=== PATIENT | female | born 1970 | race Caucasian/White ===

== ENCOUNTER 2018-03-12 08:09 | Day surgery (SDC) | payer BC ==
[2018-03-09 11:55] LABS: HEMATOCRIT 38.2 % (36.0-47.0); MEAN CORPUSCULAR HGB CONC 34.1 g/dL (32.0-36.0); MEAN CORPUSCULAR VOLUME 91 fl (80-97); PLATELET COUNT 239 10^3/uL (150-450); RED BLOOD COUNT 4.19 10^6/uL (3.72-5.28); RED CELL DISTRIBUTION WIDTH 13.7 % (11.5-14.0)
[2018-03-09 12:25] LABS: APPEARANCE,URINE CLEAR; BILIRUBIN,URINE NEGATIVE (NEGATIVE); COLOR,URINE STRAW; GLUCOSE, URINE NEGATIVE (NEGATIVE); KETONES,URINE NEGATIVE (NEGATIVE); LEUKOCYTE ESTERASE,URINE NEGATIVE (NEGATIVE); NITRITE,URINE NEGATIVE (NEGATIVE); PROTEIN,URINE NEGATIVE (NEGATIVE); URINE SPECIFIC GRAVITY 1.006; UROBILINOGEN,URINE NEGATIVE mg/dL (<2.0)
[~2018-03-12 08:09] MED LIST: LACTATED RINGERS 1000 ML IV PRN; LIDOCAINE 0.5% INJ-PF (5 MG/ML) 50 ML SDV SUBCUT PRN
[2018-03-12] MEDS ORDERED: LIDOCAINE 1%/EPINEPHRINE INJ 20 ML VIAL ONE (08:52)
[2018-03-12] MEDS ORDERED: FENTANYL CITRATE INJ/PF 100 MCG/2 ML AMPUL ONE (09:52)
[2018-03-12] MEDS ORDERED: MIDAZOLAM 2 MG/2 ML INJ ONE (09:52)
[2018-03-12] MEDS ORDERED: ONDANSETRON HCL INJ/PF 4 MG/2 ML SDV ONE ×2 (09:52→13:49)
[2018-03-12] MEDS ORDERED: DEXAMETHASONE SOD PHOSPHATE INJ 4 MG/1 ML VIAL ONE (09:52)
[2018-03-12] MEDS ORDERED: ACETAMINOPHEN 1,000 MG/100 ML RTUPB IV ONE (09:52)
[2018-03-12] MEDS ORDERED: PROPOFOL INJ 200 MG/20 ML VIAL IV ONE (09:52)
[2018-03-12] MEDS ORDERED: HYDROMORPHONE HCL INJ/PF 2 MG/ML AMPULE ONE (09:52)
[2018-03-12] MEDS ORDERED: DIPHENHYDRAMINE HCL 50 MG/ML VIAL IV PRN (10:32)
[2018-03-12] MEDS ORDERED: FENTANYL CITRATE INJ/PF 100 MCG/2 ML AMPUL IV PRN ×3 (10:32)
[2018-03-12] MEDS ORDERED: MEPERIDINE HCL/PF INJ 25 MG/1 ML DISP.SYRIN IV PRN (10:32)
[2018-03-12] MEDS ORDERED: PROMETHAZINE HCL INJ 25 MG/1 ML VIAL IV PRN (10:32)
[2018-03-12] MEDS ORDERED: MORPHINE SULFATE 10 MG/ML INJ IM PRN (11:56)
[2018-03-12] MEDS ORDERED: OXYCODONE-ACETAMINOPHEN 5-325 MG TABLET PO PRN ×2 (11:56→11:57)
[2018-03-12] MEDS ORDERED: IBUPROFEN 800 MG TABLET PO PRN (11:56)
[2018-03-12] MEDS: NALOXONE HCL INJ/PF 0.4 MG/1 ML SDV ONE ×2 (12:40→12:50)
[2018-03-12 14:41] VITALS: BP 103/64
--- NOTE | 2018-03-13 08:27 | OPERATIVE REPORT E ---
Operative Report NAME: KULWANT VALERIO : 1970 AGE: 47Y DATE OF SURGERY: 03/12/2018 ROOM: PREOPERATIVE DIAGNOSES: 1. Left ovarian cyst. 2. Endometrial polyps. POSTOPERATIVE DIAGNOSES: 1. Endometriosis. 2. Left ovarian endometrioma. 3. Endometrial polyps. SURGEON: ALDEN TRAORE M.D. FINDINGS: Small uterine polyps x2 in the endometrial cavity. The uterus sounded to approximately 10 cm. Laparoscopically seen, there was a mild hydrosalpinx at the right fallopian tube, multiple lesions in and on the peritoneum, few lesions on the lower large intestines. There was a large left ovarian endometrioma and a very small right ovarian lesion that was easily removed with some forceps. ESTIMATED BLOOD LOSS: 10 mL. SPECIMENS REMOVED: Left ovary and fallopian tube, peritoneal biopsies, endometrial curettings, and a right ovarian lesion. PROCEDURES: 1. Hysteroscope D and C. 2. Diagnostic laparoscopy with left salpingo-oophorectomy. 3. Peritoneal biopsies. 4. Removal of right ovarian lesion. PROCEDURE IN DETAIL: The patient was taken to the operating room and prepared and draped in a normal sterile fashion in the dorsal lithotomy position. Under sterile conditions, in-and-out cath was performed of approximately 150 mL of clear urine. A sterile speculum was then placed in the vagina. The cervix was prepped with Betadine and grasped on the anterior lip with a single-toothed tenaculum. The uterine sound was then introduced and sounded to approximately 10 cm. The cervix was then dilated to accommodate the hysteroscope up to 6 mm and the hysteroscope was then introduced with the above findings noted. The hysteroscope was then removed and a Kevorkian curette was introduced for endometrial curettage, which was performed sharply without difficulty. The hysteroscope was reintroduced and noted to have a small pedicle of the polyp still. The hysteroscope was reintroduced once again and the polyps were noted to be mostly absent. Another sharp curettage was then performed. This portion of the case was then completed and the single-toothed tenaculum was removed. The Hulka clamp was placed through the cervix for uterine manipulation for the upper portion of the case. Gloves were changed and attention was turned to the upper portion with an umbilical skin incision made to accommodate a 5 mm trocar. Veress needle was introduced into the peritoneal cavity and peritoneal placement was confirmed with free flow of sterile water through the Veress needle. The abdomen was then inflated with approximately 2 L of CO2 gas and the Veress needle was removed and a 5 mm port was placed into the peritoneum. The camera was then introduced and the patient was placed in Trendelenburg. With the above findings noted, there were multiple dark brown lesions throughout the abdomen and a couple of small lesions that were noted on the lower large intestines. A 5 mm trocar was then placed into the left lower quadrant and a 10 mm trocar was placed into the right lower quadrant. I noted at this time that the left ovary was actually quite adhered to the back of the uterus from what was felt to be endometriosis at this time based on the appearance of the lesions and the characteristics of the ovary. The LigaSure was introduced through the left lower port and the fallopian tube of this ovary was then elevated and the ovary was then removed using LigaSure starting at the IP ligament and carrying through to the utero-ovarian ligament. During the process, the endometrioma did rupture, unfortunately. The ovary and cyst were bagged with an Endobag and this was removed through the 10 mm port. We then copiously suction irrigated and began with biopsies of the peritoneum. Several biopsies were taken randomly of the dark brown lesions, including on the uterosacral ligament where the ovary had been removed. I then noted that there was a small pedunculated lesion on the right ovary that was easily removed with an atraumatic grasper and this was also placed in *------* and passed off the field. The rest of the peritoneal cavity was then copiously suctioned and irrigated once more. All biopsy sites were noted to be hemostatic and the case was then concluded. I did consider further fulguration of the lesions; however, they were so numerous that I felt that this would be not advisable as I was not confident that I would be able to adequately fulgurate and remove all of the lesions because of their number and the involvement with the bowel as well as on top of the bladder. Therefore, the procedure was concluded at this time. The trocars were removed. The sponge, lap, and needle counts were correct x2. The abdomen was deflated through the umbilical port and this trocar was then removed as well and the incisions were all closed with 4-0 Vicryl. The patient tolerated the procedure well. Sponge, lap, and needle counts were correct x2 again, and the patient was taken to recovery in stable condition. DICTATING PHYSICIAN: ALDEN TRAORE M.D. [id number] PHY#: [id number] ID: [id number] JOB#: [id number] ACCT: [id number] cc:ALDEN TRAORE M.D. >
== END 2018-03-12 15:00 | disposition home or self-care (01) ==
LOC: OROUT 08:09
PROVIDERS: ATTEND Obstetrics & Gynecology
DX: N83.8 Other noninflammatory disorders of ovary, fallopian tube and broad ligament (principal); N80.1 Endometriosis of ovary; N84.0 Polyp of corpus uteri; N83.292 Other ovarian cyst, left side; K66.8 Other specified disorders of peritoneum; N70.11 Chronic salpingitis; Z01.818 Encounter for other preprocedural examination
CPT/HCPCS: 36415; 85027; 81025; 81001; 88305 ×2; 58661; 49321; 58558; 58662; J2250; J1100; J3010; J2310; J1170; J2405; J2704; J0131; 840; J3490

== ENCOUNTER 2018-11-24 07:58 | Day surgery (SDC) | payer BC ==
[~2018-11-24 07:58] MED LIST changes: +BUPIVACAINE HCL 0.75% INJ/PF (7.5 MG/1 ML) 10 ML SDV OD PRN; +CHONDR SU A NA/HYALUR INTRAOC KIT (SURGICARE) ONE; +EPINEPHRINE INJ/PF 1 MG/1 ML AMPULE ONE; +KETOROLAC TROMETHAMINE 0.45% 4 DROP/0.4 ML DROPERETTE OD PRN; -LACTATED RINGERS 1000 ML IV PRN; -LIDOCAINE 0.5% INJ-PF (5 MG/ML) 50 ML SDV SUBCUT PRN; +LIDOCAINE 1% INJ-PF (10 MG/ML) 30 ML SDV ONE; +LIDOCAINE 4% INJ/PF (40 MG/ML) 5 ML AMPUL OD PRN
[2018-11-24] MEDS: TETRACAINE HCL 0.5% OPH SOLN 4 ML OD PRN ×2 (09:04→09:32)
[2018-11-24] MEDS: TROPICAMIDE 1% OPH SOLN 15 ML OD PRN ×3 (09:04→09:31)
[2018-11-24] MEDS: BESIFLOXACIN HCL 0.6% OPH SUSP 5 ML BOTTLE OD PRN ×4 (09:05→10:15)
[2018-11-24] MEDS: CYCLOPENTOLATE 0.2%/PHENYLEPHRINE 1% OPH SOLN 2 ML OD PRN ×3 (09:05→09:31)
[2018-11-24] MEDS ORDERED: MIDAZOLAM 2 MG/2 ML INJ ONE (09:32)
[2018-11-24] MEDS ORDERED: FENTANYL CITRATE INJ/PF 100 MCG/2 ML AMPUL ONE (09:33)
[2018-11-24] MEDS: DORZOLAMIDE HCL 2%/TIMOLOL MALEAT 0.5% OPH SOLN 10 ML OD PRN ×2 (10:03→10:15)
--- NOTE | 2018-11-24 13:53 | Operative Report ---
Operative Report-[facility] Operative Report: DATE OF SURGERY: 11/24/2018 PREOPERATIVE DIAGNOSIS: CATARACT, RIGHT EYE. POSTOPERATIVE DIAGNOSIS: CATARACT, RIGHT EYE. PROCEDURE PERFORMED: PHACOEMULSIFICATION WITH POSTERIOR CHAMBER INTRAOCULAR LENS, RIGHT EYE. Intraocular Lens Model : Z CB00 20.0 Total Phaco Time: 17 seconds SURGEON: ANDREY HUTCHINSON MD ANESTHESIA: TOPICAL WITH MAC. INDICATIONS FOR SURGERY: Difficulty driving at night. PROCEDURE: The patient was brought to the Operating Room and placed on the operative table. Following tetracaine drops, topical anesthesia was administered. This consisted of instrument wipe pledgets soaked in a solution of 4% Xylocaine mixed with 0.75% Marcaine in a 1:2 ratio. A 2 x 1 cm pledget was placed in the superior fornix. A 1 x 1 cm pledget was placed in the inferior fornix. The eye was patched shut for 5 minutes. The patch was removed. The eye was sterilely prepped and draped in the usual manner. Lid speculum was placed in the eye. The pledgets were removed. 4-0 black silk sutures were placed around the superior and the inferior rectus muscles to be used as traction. A conjunctival peritomy was made at the 10 o'clock position. Hemostasis was obtained with bipolar cautery. A posterior limbal groove was created using a crescent knife and dissected anteriorly towards the cornea. A sharp point blade was used to create a paracentesis site at the 2 o'clock position. 0.2 cc non preserved Lidocaine was injected into the anterior chamber. A 2.4 mm keratome was used to enter the anterior chamber through the groove. Viscoelastic was injected into the anterior chamber. An anterior capsulotomy was performed using Utrata forceps in a capsulorrhexis fashion. Hydrodissection and hydrodelineation were performed. Phacoemulsification was performed in [id number] technique. Following this, the I/A unit was used to remove residual cortex. Viscoelastic was injected into the capsular bag. The Intraocular lens was placed in the capsular bag. The I/A unit was used to remove residual viscoelastic. The wound was seen to be watertight under high and low pressure, and no sutures were placed. The intraocular lens was well centered. The pressure was adjusted in the eye to normal pressure. The 4-0 black silk sutures and lid speculum were removed. The eye was shielded after Besivance and Cosopt drops were placed. The patient tolerated the procedure well and was sent to the Recovery Room in good condition.
== END 2018-11-24 10:52 | disposition home or self-care (01) ==
LOC: SC 07:58
PROVIDERS: ATTEND Ophthalmology
DX: H25.813 Combined forms of age-related cataract, bilateral (principal); H17.89 Other corneal scars and opacities; H43.813 Vitreous degeneration, bilateral; H16.223 Keratoconjunctivitis sicca, not specified as Sjogren's, bilateral; Z88.2 Allergy status to sulfonamides
CPT/HCPCS: 66984; 00142; V2632; J2250; J3490 ×5; J0171; J3010; 142

== ENCOUNTER → 2018-12-30 | Outpatient (CLI) | payer BC ==
--- NOTE | 2018-12-30 12:14 | RADIOLOGY REPORT (SQ) ---
EXAM DESCRIPTION: T SPINE AP/LAT COMPLETED DATE/TIME: 12/30/2018 11:19 am REASON FOR STUDY: THORACIC RADICULOPATHY M54.10 RADICULOPATHY, SITE UNSPECIFIED COMPARISON: None. NUMBER OF VIEWS: Two views. TECHNIQUE: AP and lateral radiographic images acquired of the thoracic spine. LIMITATIONS: None. FINDINGS: MINERALIZATION: Normal. ALIGNMENT: Normal. No scoliosis. VERTEBRAE: No fracture or bone lesion. Maintained height, normal segmentation. DISCS: Mild multilevel height loss and small osteophytes within the midthoracic spine. HARDWARE: None in the spine. MEDIASTINUM AND SOFT TISSUES: Normal heart size and aortic contour. No soft tissue abnormality. VISUALIZED LUNG WYATT: Clear. OTHER: No other significant finding. IMPRESSION: No evidence of acute bony abnormality to the thoracic spine. TECHNICAL DOCUMENTATION: JOB ID: [id number] [employer]- All Rights Reserved Reading location - IP/workstation name: [email or web address]
== END ==
LOC: OD 10:58
PROVIDERS: ATTEND Internal Medicine
DX: M54.14 Radiculopathy, thoracic region (principal)
CPT/HCPCS: 72070

== ENCOUNTER → 2019-01-06 | Outpatient (CLI) | payer BC ==
--- NOTE | 2019-01-06 08:29 | RADIOLOGY REPORT (SQ) ---
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 TECHNIQUE: Sagittal and Axial imaging includes T1, T2, STIR and gradient echo sequences. LIMITATIONS: None. FINDINGS: LOCALIZER: No worrisome findings. ALIGNMENT: Normal. VERTEBRAE: Intact. BONE MARROW: Normal. No marrow replacement or reactive changes. HARDWARE: None in the spine. CORD: Normal in size and signal intensity. SOFT TISSUES: No soft tissue masses. THORACIC DISCS T1-T12: Mild annular bulging at T5-T6 and T7-T8. LOWER CERVICAL: Incompletely imaged. No significant spinal stenosis or exit foraminal stenosis. UPPER LUMBAR: Incompletely imaged. No significant spinal stenosis or exit foraminal stenosis. OTHER: No other significant finding. IMPRESSION: Disc space narrowing and annular disc bulging at T5-T6 and at T7-T8. No high-grade cent ral stenosis. TECHNICAL DOCUMENTATION: JOB ID: [id number] [employer]- All Rights Reserved Reading location - IP/workstation name: [email or web address]
== END ==
LOC: RAD 07:03
PROVIDERS: ATTEND Internal Medicine
DX: M51.34 Other intervertebral disc degeneration, thoracic region (principal); M54.9 Dorsalgia, unspecified
CPT/HCPCS: 72146